=== PATIENT | male | born 1965 | race African-American/Black ===

== ENCOUNTER 2016-08-10 10:01 | Emergency (ER) | payer MEDICAID ==
[~2016-08-10] VITALS: Ht 165.1 cm; Wt 76.0 kg
[~2016-08-10 10:01] MED LIST: AMLO5TAB88 PO; AMOX125S8 PO; ASPI-1158 PO; CARB200T PO; CLON0.5T4 PO; ENAL2.5T PO; ENAL2.5T39 PO; ESOM20CA PO; GLYB5TAB4 PO; INSU3INS6 SUBCUT; LEVO25TA7 PO; METF500T4 PO; OLAN5TAB3 PO; OMEP20CA10 PO; OXYB5TAB11 PO; PARO-41 PO; RISPERIDONE PO; SIMV10TA6 PO; TRAM50TA PO; ZOLP5TAB2 PO; ZOLP5TAB8 PO
[2016-08-10] MEDS ORDERED: TETANUS, DIPHTHERIA, PERTUSSIS VAC/PF 0.5ML (>7YR OLD) IM ONE (11:00)
[2016-08-10] MEDS ORDERED: IBUPROFEN 800MG TABLET PO ONE (11:00)
[2016-08-10] MEDS ORDERED: BACITRACIN ZINC OINT UDPKT TOP ONE (12:00)
[2016-08-10] MEDS ORDERED: BACITRACIN ZINC 15GM TUBE TOP ONE (12:00)
[2016-08-10 12:24] VITALS: BP 142/78
== END 2016-08-10 12:25 | disposition home or self-care (01) ==
LOC: ER 10:02
DX: S60.511A Abrasion of right hand, initial encounter (principal); L03.113 Cellulitis of right upper limb; E11.9 Type 2 diabetes mellitus without complications; F79 Unspecified intellectual disabilities; Z79.4 Long term (current) use of insulin; X58.XXXA Exposure to other specified factors, initial encounter; Y93.89 Activity, other specified; Y92.018 Other place in single-family (private) house as the place of occurrence of the external cause
CPT/HCPCS: 73130; 90471; 90715; 99284